=== PATIENT | male | born 1995 | race African-American/Black ===

== ENCOUNTER 2019-08-21 07:54 | Emergency (ER) | payer SELFPAY ==
--- NOTE | 2019-08-21 08:34 | ER ---
Nurse's Notes [facility] Name: Demetrius Gomez II Age: 24 yrs Sex: Male : 1995 Arrival Date: 08/21/2019 Time: 08:02 Bed 14 Private MD: Diagnosis: Chest pain, unspecified Presentation: 08/21 08:03 Presenting complaint: Patient states: Left sided chest pain that radiates to left hb shoulder and arm every morning x 2 years. Pain is worse upon waking, subsides by afternoon, described as pressure. Transition of care: patient was not received from another setting of care. Onset of symptoms is unknown. Risk Assessment: Do you want to hurt yourself or someone else? Patient reports no desire to harm self or others. Initial Sepsis Screen: Does the patient meet any 2 criteria? No. Patient's initial sepsis screen is negative. Does the patient have a suspected source of infection? No. Patient's initial sepsis screen is negative. Care prior to arrival: None. 08:03 Method Of Arrival: Ambulatory hb 08:03 Acuity: ARTHUR 3 hb Historical: - Allergies: 08:05 No Known Allergies; hb - Home Meds: 08:05 Zyrtec Oral [Active]; hb - PMHx: 08:05 None; hb - PSHx: 08:05 Hernia repair; hb - Immunization history:: Adult Immunizations up to date. - Social history:: Smoking status: Patient/guardian denies using tobacco. - Ebola Screening: : No symptoms or risks identified at this time. - Family history:: not pertinent. - Hospitalizations: : No recent hospitalization is reported. Screenin:05 Abuse screen: Denies threats or abuse. Denies injuries from another. Nutritional hb screening: No deficits noted. Tuberculosis screening: No symptoms or risk factors identified. 08:05 Fall Risk None identified. rb1 Assessment: 08:05 General: Appears in no apparent distress. comfortable, Behavior is calm, cooperative, rb1 Denies fever. Pain: Complains of pain in anterior aspect of left upper chest Pain radiates to left shoulder Pain currently is 6 out of 10 on a pain scale. Quality of pain is described as dull, pressure, Pain began x 2 years. Neuro: Level of Consciousness is awake, alert, obeys commands, Oriented to person, place, time, situation. Cardiovascular: Capillary refill < 3 seconds is brisk in bilateral fingers Pulses are palpable in bilateral wrists. Respiratory: Airway is patent Respiratory effort is even, unlabored, Respiratory pattern is regular, symmetrical. Respiratory: Denies shortness of breath. GI: No signs and/or symptoms were reported involving the gastrointestinal system. : No signs and/or symptoms were reported regarding the genitourinary system. Derm: Skin is dry, Skin is normal, Skin temperature is warm. Musculoskeletal: Range of motion: intact in all extremities. Vital Signs: 08:05 BP 142 / 80; Pulse 96; Resp 16; Temp 98.2(TE); Pulse Ox 100% on R/A; Weight 127.01 kg; hb Height 6 ft. (182.88 cm); Pain 5/10; 08:05 Body Mass Index 37.97 (127.01 kg, 182.88 cm) hb ED Course: 08:02 Patient arrived in ED. hb 08:04 Triage completed. hb 08:05 Izzy Gutierrez, RN is Primary Nurse. rb1 08:05 Alvin Montenegro MD is Attending Physician. rn 08:05 Arm band placed on. hb 08:05 Patient has correct armband on for positive identification. Bed in low position. Call rb1 light in reach. Side rails up X 1. laboratory monitor on. Pulse ox on. NIBP on. 08:34 No provider procedures requiring assistance completed. Patient did not have IV access rb1 during this emergency room visit. Administered Medications: No medications were administered Outcome: 08:34 Discharge ordered by . rn 08:34 Medical screen evaluation completed per provider. Patient declined treatment. rb1 08:34 Condition: stable 08:34 Instructed on follow up and referral plans. 08:51 Patient left the ED. rb1 Signatures: Alvin Montenegro MD MD rn Barber, Rebecca, RN RN rb1 Nafisa Richardson RN RN
--- NOTE | 2019-08-21 08:35 | EDPHYS ---
Physician Documentation [facility] Name: Demetrius Gomez II Age: 24 yrs Sex: Male : 1995 Arrival Date: 08/21/2019 Time: 08:02 Bed 14 Private MD: ED Physician Alvin Montenegro HPI: 08/21 08:29 This 24 yrs old Black Male presents to ER via Ambulatory with complaints of Chest Pain. rn 08:29 The patient or guardian reports chest pain that is located primarily in the anterior rn chest wall. The pain radiates to the left shoulder. The chest pain is described as dull. Duration: The patient or guardian reports multiple episodes, that are intermittent. Modifying factors: The symptoms are alleviated by nothing. the symptoms are aggravated by nothing. Severity of pain: At its worst the pain was mild in the emergency department the pain is unchanged. The patient has experienced similar episodes in the past, chronically. The patient has not recently seen a physician. 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 Hurts to move. No fever/cough/diaphoresis/swelling. No recent surgery or risk factors for DVT/PE. No trauma. No famhx of early cardiac problems. No change today, just got rained out of work so thought he would come in to be evaluated. . Historical: - Allergies: 08:05 No Known Allergies; hb - Home Meds: 08:05 Zyrtec Oral [Active]; hb - PMHx: 08:05 None; hb - PSHx: 08:05 Hernia repair; hb - Immunization history:: Adult Immunizations up to date. - Social history:: Smoking status: Patient/guardian denies using tobacco. - Ebola Screening: : No symptoms or risks identified at this time. - Family history:: not pertinent. - Hospitalizations: : No recent hospitalization is reported. ROS: 08:29 Constitutional: Negative for fever, chills, and weight loss, Eyes: Negative for injury, rn pain, redness, and discharge, Neck: Negative for injury, pain, and swelling, Cardiovascular: Negative for palpitations, and edema, Respiratory: Negative for shortness of breath, cough, wheezing, and pleuritic chest pain, Abdomen/GI: Negative for abdominal pain, nausea, vomiting, diarrhea, and constipation, MS/Extremity: Negative for injury and deformity, Skin: Negative for injury, rash, and discoloration, Neuro: Negative for headache, weakness, numbness, tingling, and seizure. Exam: 08:29 Constitutional: This is a well developed, well nourished patient who is awake, alert, rn and in no acute distress. Head/Face: Normocephalic, atraumatic. Neck: Trachea midline, no thyromegaly or masses palpated, and no cervical lymphadenopathy. Supple, full range of motion without nuchal rigidity, or vertebral point tenderness. No Meningismus. Cardiovascular: Regular rate and rhythm. No pulse deficits. Respiratory: Lungs have equal breath sounds bilaterally, clear to auscultation. No increased work of breathing, no retractions or nasal flaring. Abdomen/GI: Soft, non-tender. MS/ Extremity: Pulses equal, no cyanosis. Neurovascular intact. Full, normal range of motion. Equal circumference. Neuro: Awake and alert, GCS 15, oriented to person, place, time, and situation. Cranial nerves II-XII grossly intact. Motor strength 5/5 in all extremities. Sensory grossly intact. Cerebellar exam normal. Normal gait. Vital Signs: 08:05 BP 142 / 80; Pulse 96; Resp 16; Temp 98.2(TE); Pulse Ox 100% on R/A; Weight 127.01 kg; hb Height 6 ft. (182.88 cm); Pain 5/10; 08:05 Body Mass Index 37.97 (127.01 kg, 182.88 cm) hb MDM: 08:06 Patient medically screened. rn 08:29 Differential diagnosis: chest wall pain, costochondritis, radiculopathy, strain/ rn tendinitis. Data reviewed: vital signs, nurses notes, and as a result, I will discharge patient. Counseling: I had a detailed discussion with the patient and/or guardian regarding: the historical points, exam findings, and any diagnostic results supporting the discharge/admit diagnosis, the need for outpatient follow up, to return to the emergency department if symptoms worsen or persist or if there are any questions or concerns that arise at home. Special discussion: I discussed with the patient/guardian in detail that at this point there is no indication for admission to the hospital. It is understood, however, that if the symptoms persist or worsen the patient needs to return immediately for re-evaluation. Further emergent ED testing is not indicated at this point in time. I discussed with the patient/guardian in detail the need to arrange with the PCP or specialist further outpatient testing, MRI, Based on the history and exam findings, there is no indication for further emergent testing or inpatient evaluation. I discussed with the patient/guardian the need to see the primary care provider for further evaluation of the symptoms. ED course: No acute findings on exam or new symptoms, here because got rained out, medically screened. . Administered Medications: No medications were administered Disposition: 08/21/19 08:34 Discharged to Home as Medical Screen. Impression: Chest pain, unspecified. - Condition is Stable. - Discharge Instructions: Nonspecific Chest Pain, Pain Without a Known Cause. - Medication Reconciliation Form, Thank You Letter, Antibiotic Education, Prescription Opioid Use form. - Follow up: Private Physician; When: As needed; Reason: Recheck today's complaints, Re-evaluation by your physician. - Problem is chronic. - Symptoms have improved. Signatures: Alvin Montenegro MD MD rn Barber, Rebecca, RN RN [facility] Nafisa Richardson RN RN Corrections: (The following items were deleted from the chart) 08:34 08:34 08/21/2019 08:34 Discharged to Home. Impression: Chest pain, unspecified. rn Condition is Stable. Forms are Medication Reconciliation Form, Thank You Letter, Antibiotic Education, Prescription Opioid Use. Follow up: Private Physician; When: As needed; Reason: Recheck today's complaints, Re-evaluation by your physician. Problem is chronic. Symptoms have improved. rn 08:51 08:34 08/21/2019 08:34 Discharged to Home as Medical Screen. Impression: Chest pain, rb1 unspecified. Condition is Stable. Forms are Medication Reconciliation Form, Thank You Letter, Antibiotic Education, Prescription Opioid Use. Follow up: Private Physician; When: As needed; Reason: Recheck today's complaints, Re-evaluation by your physician. Problem is chronic. Symptoms have improved. rn
[2019-08-21 09:10] VITALS: BP 142/80; TEMP 98.2; O2SAT 100
== END 2019-08-21 08:51 | disposition home or self-care (01) ==
LOC: ER 07:54
DX: R07.9 Chest pain, unspecified (principal)
CPT/HCPCS: 99284